=== PATIENT | male | born 1995 | race African-American/Black ===

== ENCOUNTER 2016-05-07 08:35 | Outpatient (CLI) | payer MEDICAID | END 2016-05-07 08:36 | disposition home or self-care (01) | DX: Z13.9 Encounter for screening, unspecified (principal); Z11.3 Encounter for screening for infections with a predominantly sexual mode of transmission; L50.9 Urticaria, unspecified ==

== ENCOUNTER 2016-06-12 06:07 | Emergency (ER) | payer MEDICAID ==
[2016-06-12] MEDS ORDERED: MUPIROCIN 2% OINT 22 GM TUBE TOP STA (07:25)
[2016-06-12] MEDS ORDERED: SULFAMETH/TRIMETH DS 800/160 MG TABLET PO STA (07:25)
[2016-06-12] MEDS ORDERED: SULFAMETH/TRIMETH DS 800/160 MG TABLET PO ONE (07:30)
[2016-06-12] MEDS ORDERED: MUPIROCIN 2% OINT 22 GM TUBE TOP ONE (07:30)
== END 2016-06-12 07:37 | disposition home or self-care (01) ==
DX: J34.0 Abscess, furuncle and carbuncle of nose (principal); F17.200 Nicotine dependence, unspecified, uncomplicated
CPT/HCPCS: 99283; A9270

== ENCOUNTER 2017-06-26 15:09 | Emergency (ER) | payer MEDICAID, OTHER ==
[2017-06-26 15:15] VITALS: BP 144/85
--- NOTE | 2017-06-26 16:56 | ED Physician Documentation ---
History of Present Illness - Stated complaint Stated Complaint: TOOTH PX/EAR PX - Chief complaint Chief Complaint: Heent - Additonal information Additional information: hx from pt 21 male broken right lowe 2nd molar hurting for a month dental appt is not for another month inc pain for 3 days no fever Review of Systems Constitutional: denies: Fever Throat: reports: Dental pain / toothache PD PAST MEDICAL HISTORY - Past Medical History Endocrine/Autoimmune: None - Past Surgical History Past Surgical History: No - Present Medications Home Medications: Ambulatory Orders Medication Instructions Recorded Confirmed Amoxicillin 500 mg PO Q8H #30 capsule 06/26/17 Ibuprofen [Motrin] 400 mg PO Q6H PRN #30 tablet 06/26/17 Oxycodone HCl/Acetaminophen 1 each PO Q6HR PRN #10 tablet 06/26/17 [Percocet 5-325 mg Tablet] - Allergies Allergies/Adverse Reactions: Allergies Allergy/AdvReac Type Severity Reaction Status Date / Time No Known Drug Allergies Allergy Verified 06/12/16 06:21 - Social History Does the pt smoke?: Yes Smoking Status: Current every day smoker Does the pt drink ETOH?: No Does the pt have substance abuse?: No - Immunizations Immunizations are current?: Yes - POLST Patient has POLST: No PD ED PE NORMAL - Vitals Vital signs reviewed: Yes - HEENT HEENT: Other (R lower 2nd molar tender with swollen gum no visible abscess to [place], no submandibular or neck swelling no trismus) - Neck Neck: Supple, no meningeal sign - Cardiac Cardiac: RRR - Respiratory Respiratory: No respiratory distress, Clear bilaterally Results - Vitals Vitals: Vital Signs - 24 hr 06/26/17 15:12 Temperature 37.1 C Heart Rate 64 Respiratory 18 Rate Blood Pressure 144/85 H O2 Saturation 99 Oxygen O2 Source Room air PD MEDICAL DECISION MAKING - ED course ED course: no CLEM WMPM flag Departure - Departure Disposition: 01 Home, Self Care Clinical Impression: Dental abscess Condition: Good Instructions: ED Abscess Dental Prescriptions: Oxycodone HCl/Acetaminophen [Percocet 5-325 mg Tablet] 1 each PO Q6HR PRN #10 tablet PRN Reason: Severe Pain Amoxicillin 500 mg PO Q8H #30 capsule Ibuprofen [Motrin] 400 mg PO Q6H PRN #30 tablet PRN Reason: Pain
[2017-06-26] MEDS ORDERED: oxyCOD/ACETAMIN 5 MG/325 MG TABLET PO STA (16:59)
[2017-06-26] MEDS ORDERED: IBUPROFEN 400 MG TABLET PO STA (16:59)
[2017-06-26] MEDS ORDERED: AMOXICILLIN 250 MG CAPSULE PO STA (16:59)
== END 2017-06-26 17:10 | disposition home or self-care (01) ==
LOC: ED 15:09
DX: K04.7 Periapical abscess without sinus (principal); F17.200 Nicotine dependence, unspecified, uncomplicated
CPT/HCPCS: 99282; 99283; A9270

== ENCOUNTER 2017-11-06 10:40 | Outpatient (CLI) | payer BC, MEDICAID ==
[2017-11-06 12:43] LABS: BASOPHILS # (AUTO) 0.2 10^3/uL (0.0-0.1); BASOPHILS % (AUTO) 2.1 %; EOSINOPHILS # (AUTO) 0.2 10^3/uL (0.0-0.7); HGB - HEMOGLOBIN 14.2 g/dL (14.0-18.0); LYMPHOCYTES # (AUTO) 1.8 10^3/uL (1.5-3.5); LYMPHOCYTES % (AUTO) 23.2 %; MEAN CORPUSCULAR HEMOGLOBIN 30.8 pg (27.0-31.0); MEAN CORPUSCULAR HGB CONC 35.7 g/dL (32.0-36.0); MEAN CORPUSCULAR VOLUME 86.3 fL (80.0-94.0); MEAN PLATELET VOLUME 10.3 fL (7.4-11.4); MONOCYTES # (AUTO) 0.5 10^3/uL (0.0-1.0); MONOCYTES % (AUTO) 6.7 %; PLT - PLATELET COUNT 263 10^3/uL (130-450); RED BLOOD COUNT 4.62 10^6/uL (4.70-6.10); WHITE BLOOD COUNT 7.6 x10^3/uL (4.8-10.8)
[2017-11-06 13:25] LABS: ALBUMIN 4.4 g/dL (3.2-5.5); ALBUMIN/GLOBULIN RATIO 1.2 (1.0-2.2); BILIRUBIN,TOTAL 1.7 mg/dL (0.2-1.0); CALCIUM 9.6 mg/dL (8.5-10.3); CREATININE 0.8 mg/dL (0.6-1.2); TOTAL PROTEIN 8.2 g/dL (6.7-8.2)
== END 2017-11-06 10:41 ==
LOC: LAB.N 10:40
PROVIDERS: ATTEND Family Medicine
DX: R00.2 Palpitations (principal)
CPT/HCPCS: 36415; 80053; 84443; 85025

== ENCOUNTER → 2017-11-06 | Outpatient (CLI) | payer MEDICAID | LOC: RT.N 10:10 | PROVIDERS: ATTEND Family Medicine | DX: R00.2 Palpitations (principal) | CPT/HCPCS: 93005 ==

== ENCOUNTER 2017-12-02 21:41 | Emergency (ER) | payer MEDICAID ==
[2017-12-02 21:55] VITALS: BP 128/90
--- NOTE | 2017-12-02 21:56 | ED Physician Documentation ---
PD HPI HEAD INJURY - Stated complaint Stated Complaint: HEADACHES/VISION CHANGES - Chief complaint Chief Complaint: Trauma Hd/Nk - History obtained from History obtained from: Patient - History of Present Illness Mechanism of head injury: Blow Where head injury occurred: A house / apartment Timing - onset: How many days ago (4 days ago ()) Location of injury: Left, Front Quality of pain: Pain Associated symptoms: No: LOC, AMS, Amnesia, Nausea / vomiting, Neck pain Symptoms improve with: Nothing Symptoms worsen with: Movement Contributing factors: No: Anticoagulated, Intoxicated Recently seen: Clinic - Additional information Additional information: sustained head injury (11/27/17), blow to left forehead. He was evaluated at a walk-in clinic same day, no testing performed. The next day, he developed bilateral occipital headache which has been gradually worsening since then. also notes intermittent blurry vision. Review of Systems Eyes: reports: Decreased vision (intermittent (episodic) blurry vision, not having this at this time). denies: Loss of vision, Photophobia GI: denies: Nausea, Vomiting Neurologic: reports: Headache, Head injury. denies: Generalized weakness, Focal weakness, Numbness, Confused, Altered mental status, LOC PD PAST MEDICAL HISTORY - Past Medical History Past Medical History: No Endocrine/Autoimmune: None - Past Surgical History Past Surgical History: No - Present Medications Home Medications: Ambulatory Orders Medication Instructions Recorded Confirmed No Known Home Medications [No 12/02/17 12/02/17 Known Home Medications] - Allergies Allergies/Adverse Reactions: Allergies Allergy/AdvReac Type Severity Reaction Status Date / Time No Known Drug Allergies Allergy Verified 12/02/17 21:51 - Social History Does the pt smoke?: Yes Smoking Status: Current every day smoker Does the pt drink ETOH?: No Does the pt have substance abuse?: No - Immunizations Immunizations are current?: Yes - POLST Patient has POLST: No PD ED PE NORMAL - Vitals Vital signs reviewed: Yes - General General: Alert and oriented X 3, No acute distress, Well developed/nourished - HEENT HEENT: Atraumatic, PERRL, EOMI - Neck Neck: No bony TTP - Cardiac Cardiac: RRR, No murmur - Respiratory Respiratory: No respiratory distress, Clear bilaterally - Neuro Neuro: Alert and oriented X 3, planner 2-12 intact, No motor deficit, No sensory deficit, Normal speech Eye Opening: Spontaneous Motor: Obeys Commands Verbal: Oriented GCS Score: 15 Results - Vitals Vitals: Oxygen O2 Source Room air - Rads (name of study) CT head Radiology: Prelim report reviewed, See rad report PD MEDICAL DECISION MAKING - ED course Complexity details: reviewed results, re-evaluated patient, considered differential, d/w patient - Sepsis Event Vital Signs: Oxygen O2 Source Room air Departure - Departure Disposition: 01 Home, Self Care Clinical Impression: Concussion Condition: Good Instructions: ED Concussion Follow-Up: Cheri Holman ARNP [Primary Care Provider] - (5-7 days if symptoms have not completely resolved) Discharge Date/Time: 12/02/17 23:17
--- NOTE | 2017-12-02 22:32 | CT Report ---
Reason: head injury, headache, visual changes Procedure Date: 12/02/2017 Accession Number: [id number] / [id number] Procedure: CT - Head W/O CPT Code: FULL RESULT: EXAM: CT HEAD EXAM DATE: 12/02/2017 10:21 PM. CLINICAL HISTORY: Head injury, headache, visual changes. COMPARISON: None. TECHNIQUE: Multiaxial CT images were obtained from the foramen magnum to the vertex. Reformats: Sagittal and coronal. IV contrast: None. In accordance with CT protocol optimization, one or more of the following dose reduction techniques were utilized for this exam: automated exposure control, adjustment of mA and/or KV based on patient size, or use of iterative reconstructive technique. FINDINGS: Parenchyma: No intraparenchymal hemorrhage. No evidence of mass, midline shift, or CT findings of infarction. Brower-white differentiation is distinct. Extraaxial Spaces: Normal for age. No subdural or epidural collections identified. Ventricles: Normal in size and position. Sinuses and Orbits: Imaged paranasal sinuses, orbits, and mastoids show no significant abnormality. Bones: No evidence of fracture or calvarial defect. Other: None. IMPRESSION: Normal head CT. RADIA
== END 2017-12-02 23:17 | disposition home or self-care (01) ==
LOC: ED 21:41
DX: S06.0X0A Concussion without loss of consciousness, initial encounter (principal); W22.8XXA Striking against or struck by other objects, initial encounter; Y93.89 Activity, other specified; Y99.0 Civilian activity done for income or pay; F17.200 Nicotine dependence, unspecified, uncomplicated
CPT/HCPCS: 70450; 99282; 99283

== ENCOUNTER 2017-12-09 00:41 | Outpatient (CLI) | payer MEDICAID | END 2017-12-09 00:42 | disposition critical access hospital (66) | LOC: EMS 00:41 | PROVIDERS: ATTEND Surgery | DX: R00.0 Tachycardia, unspecified (principal) | CPT/HCPCS: A0425; A0429 ==

== ENCOUNTER 2017-12-09 01:01 | Emergency (ER) | payer MEDICAID ==
[2017-12-09 05:19] LABS: ALBUMIN 4.5 g/dL (3.2-5.5); ALBUMIN/GLOBULIN RATIO 1.4 (1.0-2.2); BILIRUBIN,TOTAL 0.9 mg/dL (0.2-1.0); CALCIUM 9.3 mg/dL (8.5-10.3); CREATININE 0.9 mg/dL (0.6-1.2); TOTAL PROTEIN 7.7 g/dL (6.7-8.2)
[2017-12-09 05:20] LABS: FREE T4 (FREE THYROXINE) 0.98 ng/dL (0.58-1.64); THYROID STIMULATING HORMONE 2.65 uIU/mL (0.34-5.60)
[2017-12-09 05:22] LABS: BASOPHILS # (AUTO) 0.2 10^3/uL (0.0-0.1); BASOPHILS % (AUTO) 2.9 %; EOSINOPHILS # (AUTO) 0.4 10^3/uL (0.0-0.7); EOSINOPHILS % (AUTO) 6.2 %; HGB - HEMOGLOBIN 13.7 g/dL (14.0-18.0); LYMPHOCYTES # (AUTO) 1.9 10^3/uL (1.5-3.5); LYMPHOCYTES % (AUTO) 29.6 %; MEAN CORPUSCULAR HEMOGLOBIN 31.9 pg (27.0-31.0); MEAN CORPUSCULAR HGB CONC 36.6 g/dL (32.0-36.0); MEAN CORPUSCULAR VOLUME 87.3 fL (80.0-94.0); MONOCYTES # (AUTO) 0.6 10^3/uL (0.0-1.0); MONOCYTES % (AUTO) 9.3 %; NEUTROPHILS # (AUTO) 3.4 10^3/uL (1.5-6.6); PLT - PLATELET COUNT 197 10^3/uL (130-450); RED BLOOD COUNT 4.29 10^6/uL (4.70-6.10); RED CELL DISTRIBUTION WIDTH 12.5 % (12.0-15.0); WHITE BLOOD COUNT 6.6 x10^3/uL (4.8-10.8)
--- NOTE | 2017-12-16 12:25 | ED Physician Documentation ---
ED Addendum - Addendum Addendum: 12/16/17 12:24 Discharged home Impression: Palpitations Please refer to the note done in downtime
== END 2017-12-09 02:30 | disposition home or self-care (01) ==
LOC: ED 01:01
DX: R00.2 Palpitations (principal); R07.9 Chest pain, unspecified; R06.02 Shortness of breath
CPT/HCPCS: 36415; 80053; 83690; 84439; 84443; 84484; 85025; 85379; 93005; 99282

== ENCOUNTER 2017-12-10 10:23 | Emergency (ER) | payer MEDICAID ==
[2017-12-10 11:06] VITALS: BP 116/84
== END 2017-12-10 12:47 | disposition left against medical advice (07) ==
LOC: ED 10:23
DX: Z53.21 Procedure and treatment not carried out due to patient leaving prior to being seen by health care provider (principal)

== ENCOUNTER 2017-12-11 18:13 | Emergency (ER) | payer MEDICAID ==
[2017-12-11] MEDS ORDERED: LORazepam 0.5 MG TABLET PO STA (20:11)
--- NOTE | 2017-12-11 20:14 | ED Physician Documentation ---
PD HPI CHEST PAIN - Stated complaint Stated Complaint: CP/FAST HEART - Chief complaint Chief Complaint: Cardiac - History obtained from History obtained from: Patient, Friend - History of Present Illness Timing - onset: Other (For the past 3 days or so he has been dealing with what he describes intermittent anxiety attacks where he has a rapid heart rate and pain are in the anterior chest and he feels ramped up and cannot really control it and feels locked up throughout his body when this happens. It lasts for minutes at a time generally. He was prescribed something for it by his primary care physician but has not picked it up yet. We do not know what that was. He has been evaluated a couple of times with negative diagnostics including d-dimer and troponin so far.) Review of Systems Constitutional: denies: Fever, Chills Respiratory: denies: Cough GI: denies: Abdominal Pain, Nausea, Vomiting PD PAST MEDICAL HISTORY - Past Medical History Past Medical History: No Endocrine/Autoimmune: None - Past Surgical History Past Surgical History: No - Present Medications Home Medications: Ambulatory Orders Medication Instructions Recorded Confirmed Ibuprofen [Motrin] 800 mg PO Q8H PRN #30 tablet 12/11/17 Lorazepam [Ativan] 1 mg PO TID PRN #10 tablet 12/11/17 - Allergies Allergies/Adverse Reactions: Allergies Allergy/AdvReac Type Severity Reaction Status Date / Time No Known Drug Allergies Allergy Verified 12/02/17 21:51 - Social History Does the pt smoke?: Yes Smoking Status: Current every day smoker Does the pt drink ETOH?: No Does the pt have substance abuse?: No - Immunizations Immunizations are current?: Yes - POLST Patient has POLST: No PD ED PE NORMAL - Vitals Vital signs reviewed: Yes - General General: Alert and oriented X 3 (Visibly anxious) - Neck Neck: Supple, no meningeal sign, No bony TTP - Cardiac Cardiac: RRR, No murmur - Respiratory Respiratory: No respiratory distress, Clear bilaterally - Abdomen Abdomen: Non tender - Extremities Extremities: No edema, No calf tenderness / cord - Neuro Neuro: Alert and oriented X 3, Normal speech Results - Vitals Vitals: Vital Signs - 24 hr 12/11/17 12/11/17 12/11/17 18:17 19:14 19:19 Temperature 37 C Heart Rate 88 91 Respiratory 16 16 Rate Blood Pressure 108/63 115/72 Blood Pressure 115/72 [Left] O2 Saturation 100 100 Oxygen O2 Source Room air - EKG (time done) 1827 Rate: Rate (enter#) (88) Rhythm: NSR [place]: Normal Intervals: Normal [place] QRS: Normal Ischemia: ST elevation c/w repol Computer interpretation: Agree with computer PD MEDICAL DECISION MAKING - ED course ED course: 22-year-old gentleman with anxiety. He has been thoroughly worked up without d iagnostic abnormalities ruling out life-threatening etiologies. - Sepsis Event Vital Signs: Vital Signs - 24 hr 12/11/17 12/11/17 12/11/17 18:17 19:14 19:19 Temperature 37 C Heart Rate 88 91 Respiratory 16 16 Rate Blood Pressure 108/63 115/72 Blood Pressure 115/72 [Left] O2 Saturation 100 100 Oxygen O2 Source Room air Departure - Departure Disposition: 01 Home, Self Care Clinical Impression: Anxiety Condition: Good Record reviewed to determine appropriate education?: Yes Instructions: ED Panic Attack Prescriptions: Ibuprofen [Motrin] 800 mg PO Q8H PRN #30 tablet PRN Reason: PAIN &/OR FEVER Lorazepam [Ativan] 1 mg PO TID PRN #10 tablet PRN Reason: Anxiety Comments: Call your doctor to arrange a follow-up appointment, make the next available appointment. In the interim, return anytime if worse or if new symptoms develop.
[2017-12-11 20:28] VITALS: BP 127/85
== END 2017-12-11 20:37 | disposition home or self-care (01) ==
LOC: ED 18:13
DX: F41.9 Anxiety disorder, unspecified (principal); F17.200 Nicotine dependence, unspecified, uncomplicated
CPT/HCPCS: 93005; 99283; A9270; 84484

== ENCOUNTER 2017-12-19 20:53 | Outpatient (CLI) | payer MEDICAID | END 2017-12-19 20:54 | disposition critical access hospital (66) | LOC: EMS 20:53 | PROVIDERS: ATTEND Surgery | DX: R06.02 Shortness of breath (principal) | CPT/HCPCS: A0425; A0427 ==

== ENCOUNTER 2017-12-19 21:11 | Emergency (ER) | payer MEDICAID ==
[2017-12-19 21:22] VITALS: BP 123/93
--- NOTE | 2017-12-19 21:26 | ED Physician Documentation ---
History of Present Illness - Stated complaint Stated Complaint: SOA - Chief complaint Chief Complaint: Resp - History obtained from History obtained from: Patient - Additonal information Additional information: 22-year-old male presents the emergency department with a sensation of shortness of breath. The patient reports having a panic attack just prior to arrival. Presently now the patient's anxiety and panic have resolved and his shortness of breath has also resolved. The patient denies chest pain, URI symptoms, productive cough, fevers, chills or abdominal pain. Symptoms were described as moderate and now are very mild. No other associated symptoms. No specific triggering factors Review of Systems Constitutional: denies: Fever Eyes: denies: Discharge Ears: denies: Ear pain Nose: denies: Congestion Throat: denies: Sore throat Cardiac: denies: Palpitations, Pedal edema Respiratory: reports: Dyspnea GI: denies: Abdominal Pain Skin: denies: Rash Musculoskeletal: denies: Neck pain Neurologic: denies: Focal weakness Psychiatric: reports: Anxiety. denies: Depressed, Homicidal PD PAST MEDICAL HISTORY - Past Medical History Endocrine/Autoimmune: None - Past Surgical History Past Surgical History: No - Present Medications Home Medications: Ambulatory Orders Medication Instructions Recorded Confirmed Sertraline [Zoloft] 1 tab PO DAILY 12/19/17 12/19/17 - Allergies Allergies/Adverse Reactions: Allergies Allergy/AdvReac Type Severity Reaction Status Date / Time No Known Drug Allergies Allergy Verified 12/19/17 21:13 - Social History Does the pt smoke?: Yes Smoking Status: Current every day smoker Does the pt drink ETOH?: No Does the pt have substance abuse?: No - Immunizations Immunizations are current?: Yes - POLST Patient has POLST: No PD ED PE NORMAL - General General: Alert and oriented X 3, No acute distress - HEENT HEENT: Atraumatic, PERRL, EOMI, Ears normal - Neck Neck: Supple, no meningeal sign - Cardiac Cardiac: RRR, Strong equal pulses - Respiratory Respiratory: No respiratory distress, Clear bilaterally - Derm Derm: Normal color - Extremities Extremities: Normal ROM s pain - Neuro Neuro: Alert and oriented X 3, Normal speech - Psych Psych: Normal mood Results - Vitals Vitals: Vital Signs - 24 hr 12/19/17 21:15 Temperature 36.3 C L Heart Rate 84 Respiratory 16 Rate Blood Pressure 123/93 H O2 Saturation 100 Oxygen O2 Source Room air - EKG (time done) 21:32 Rate: Rate (enter#) Rhythm: NSR Intervals: Normal [place] QRS: Normal Ischemia: Normal ST segments Compare to prior EKG: Unchanged from prior EKG - Rads (name of study) CXR Radiology: Final report received PD MEDICAL DECISION MAKING - ED course ED course: The patient symptoms have resolved, the patient's lungs are clear and his chest x-ray shows no abnormality. The patient's history is not suggestive of acute co ronary syndrome or pulmonary embolism. Presently the patient appears appropriate for discharge and ongoing outpatient management. I discussed warning signs and recommended returning to the emergency department immediately for worsening or any concerns. - Sepsis Event Vital Signs: Vital Signs - 24 hr 12/19/17 21:15 Temperature 36.3 C L Heart Rate 84 Respiratory 16 Rate Blood Pressure 123/93 H O2 Saturation 100 Oxygen O2 Source Room air Departure - Departure Disposition: 01 Home, Self Care Clinical Impression: Dyspnea Qualifiers: Dyspnea type: unspecified Qualified Code(s): R06.00 - Dyspnea, unspecified Condition: Good Instructions: ED Panic Attack, ED Anxiety Reaction Ch Comments: Please follow-up with primary care. Please return to the emergency department for worsening symptoms or any concerns
--- NOTE | 2017-12-19 22:37 | XRAY Report ---
Reason: CP Procedure Date: 12/19/2017 Accession Number: [id number] / [id number] Procedure: XR - Chest 2 View X-Ray CPT Code: 70092 FULL RESULT: EXAM: CHEST RADIOGRAPHY EXAM DATE: 12/19/2017 10:22 PM. CLINICAL HISTORY: Chest pain, palpitations, history of anxiety attacks COMPARISON: None. TECHNIQUE: 2 views. FINDINGS: Lungs/Pleura: No focal opacities evident. No pleural effusion. No pneumothorax. Normal volumes. Mediastinum: Heart and mediastinal contours are unremarkable. Other: Nonspecific mild anterior wedging T6. IMPRESSION: No acute cardiopulmonary abnormality demonstrated. RADIA
== END 2017-12-19 22:55 | disposition home or self-care (01) ==
LOC: EDUNIT# → EDBD → ED 21:11
DX: R06.00 Dyspnea, unspecified (principal); F17.200 Nicotine dependence, unspecified, uncomplicated
CPT/HCPCS: 71046; 93005; 99282; 99283

== ENCOUNTER 2020-02-21 07:00 | Outpatient (CLI) | payer BC | END 2020-02-21 23:59 | disposition home or self-care (01) | LOC: COV 07:00 | PROVIDERS: ATTEND Family Medicine | DX: R05 Cough (principal); R06.02 Shortness of breath; J02.9 Acute pharyngitis, unspecified; R19.7 Diarrhea, unspecified; R09.81 Nasal congestion; Z20.828 Contact with and (suspected) exposure to other viral communicable diseases ==

== ENCOUNTER 2023-03-08 13:27 | Emergency (ER) | payer BC ==
--- NOTE | 2023-03-08 16:25 | ED Physician Documentation ---
PD HPI BACK PAIN - Stated complaint Stated Complaint: BACK PX - Chief complaint Chief Complaint: Back Pain - History obtained from History obtained from: Patient - History of Present Illness Timing - onset: Today Timing - duration: Hours Timing - details: Abrupt onset, Still present Location: Mid Quality: Pain, Spasm, Sharp, Similar to prior episodes Associated symptoms: No: Fever, Weakness, Numbness, Incontinent of urine, Unable to urinate, Hematuria, Incontinent of stool Improves with: Rest, Position Worsened by: Movement Contributing factors: Lifting, Twisting Similar symptoms before: Diagnosis (back strain) Recently seen: Not recently seen - Additional information Additional information: Heriberto Bustos 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 He did not feel a crack or pop. He has had pain since and he is having trouble moving around. He has had to wait 2 and half hours here at the emergency department and his pain is come down from an 8 to a 6. He is feeling significantly better. He has had prior injuries to his back from lifting not have been this bad. He has not had to come to the emergency department for a back strain. Review of Systems Constitutional: denies: Fever Eyes: denies: Decreased vision Ears: denies: Ear pain Nose: denies: Congestion Throat: denies: Oral lesions / sores, Sore throat Cardiac: denies: Chest pain / pressure Respiratory: denies: Dyspnea, Cough GI: denies: Abdominal Pain, Nausea, Vomiting, Constipation, Diarrhea : denies: Dysuria, Frequency Skin: denies: Rash Musculoskeletal: reports: Back pain. denies: Neck pain, Extremity pain Neurologic: denies: Generalized weakness, Focal weakness, Numbness PD PAST MEDICAL HISTORY - Past Medical History Endocrine/Autoimmune: None - Past Surgical History Past Surgical History: No - Present Medications Home Medications: Ambulatory Orders Medication Instructions Recorded Confirmed Sertraline [Zoloft] 1 tab PO DAILY 12/19/17 12/19/17 Cyclobenzaprine [Flexeril] 10 mg PO TID PRN #20 tablet 03/08/23 HYDROcod/ACETAM 5/325 [[place] 5/325] 1 - 2 tablet PO Q6H PRN #14 tablet 03/08/23 - Allergies Allergies/Adverse Reactions: Allergies Allergy/AdvReac Type Severity Reaction Status Date / Time No Known Drug Allergies Allergy Verified 12/19/17 21:13 - Social History Does the pt smoke?: Yes Smoking Status: Current every day smoker Does the pt drink ETOH?: No Does the pt have substance abuse?: No - Immunizations Immunizations are current?: Yes - POLST Patient has POLST: No PD ED PE NORMAL - Vitals Vital signs reviewed: Yes (hypertensive ) - General General: Alert and oriented X 3, No acute distress, Well developed/nourished - HEENT HEENT: Atraumatic, PERRL, EOMI - Neck Neck: Supple, no meningeal sign, No bony TTP - Cardiac Cardiac: RRR, No murmur - Respiratory Respiratory: No respiratory distress, Clear bilaterally - Abdomen Abdomen: Soft, Non tender - Back Back: No CVA TTP, No spinal TTP, Other (pain to palpation to the mid back at the T/L junction ) - Derm Derm: Normal color, Warm and dry, No rash - Extremities Extremities: No deformity, No edema - Neuro Neuro: Alert and oriented X 3, 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 I was able to get the patient to walk in the emergency department which she did without any difficulty he was able to bend over and touch his toes and this caused him some pain. He was able to do it and able to stand up by himself. He has a strain to his back we discussed potentially taking x-rays and decided against this. Departure - Departure Disposition: 01 Home, Self Care Clinical Impression: Acute lumbar myofascial strain Qualifiers: Encounter type: initial encounter Qualified Code(s): S39.012A - Strain of muscle, fascia and tendon of lower back, initial encounter Condition: Stable Instructions: ED Sprain Thoracic Spine, ED Sprain Strain Lumbar Follow-Up: [facility] [place] [Provider Group] Prescriptions: Cyclobenzaprine [Flexeril] 10 mg PO TID PRN #20 tablet PRN Reason: Spasms HYDROcod/ACETAM 5/325 [[place] 5/325] 1 - 2 tablet PO Q6H PRN #14 tablet PRN Reason: Pain Comments: Heriberto today it looks like you have strained your back and the recommendation is to reduce your activity use ice and stretch I have provided some pain medication a muscle relaxant to use for this. It has been E scribed to the [facility] in [place].
[2023-03-08 16:41] VITALS: BP 130/80; O2SAT 99
== END 2023-03-08 16:36 | disposition home or self-care (01) ==
LOC: ED 13:27
DX: S39.012A Strain of muscle, fascia and tendon of lower back, initial encounter (principal); X50.1XXA Overexertion from prolonged static or awkward postures, initial encounter; Y99.0 Civilian activity done for income or pay; F17.200 Nicotine dependence, unspecified, uncomplicated
CPT/HCPCS: 99281; 99283